=== PATIENT | male | born 1975 | race African-American/Black ===

== ENCOUNTER 2017-11-10 17:32 | Emergency (ER) | payer SELFPAY ==
[2017-11-10] MEDS ORDERED: Morphine 4 MG/ML VIAL ONE (19:05)
== END 2017-11-10 19:58 | disposition home or self-care (01) ==
LOC: ERS 17:32
DX: S13.4XXA Sprain of ligaments of cervical spine, initial encounter (principal); S39.012A Strain of muscle, fascia and tendon of lower back, initial encounter; F17.210 Nicotine dependence, cigarettes, uncomplicated; Z79.891 Long term (current) use of opiate analgesic; V89.2XXA Person injured in unspecified motor-vehicle accident, traffic, initial encounter
CPT/HCPCS: 96374; J2270

== ENCOUNTER 2018-07-24 16:35 | Emergency (ER) | payer OTHER, SELFPAY ==
[2018-07-24 17:08] LABS: Bilirubin Small (Negative); Blood, Urine Negative (Negative); Clarity CLEAR (Clear); Glucose, Urine (Dipstick) Negative (Negative); Leukocyte Negative (Negative); Nitrite Negative (Negative); Protein, Urine (Dipstick) Trace mg/dL (Neg-Trace); Specific Gravity, Urine 1.025 (1.002-1.036)
[2018-07-24] MEDS ORDERED: metroNIDAZOLE 250 MG TAB ONE ×2 (17:21→17:41)
[2018-07-24] MEDS ORDERED: cefTRIAXone\\ROCEPHIN 250 MG VIAL ONE (17:21)
[2018-07-24] MEDS ORDERED: Azithromycin 250 MG TAB ONE (17:21)
[2018-07-24] MEDS ORDERED: Lidocaine 1% PF 5 ML VIAL ONE (17:21)
[2018-07-25 23:48] LABS: Chlamydia by PCR Not Detected (NotDetected); GC by PCR Not Detected (NotDetected)
== END 2018-07-24 17:51 | disposition home or self-care (01) ==
LOC: ERS 16:35
DX: Z20.2 Contact with and (suspected) exposure to infections with a predominantly sexual mode of transmission (principal); F17.210 Nicotine dependence, cigarettes, uncomplicated
CPT/HCPCS: 81003; 87491; 87591; 96372; J0696; J2001

== ENCOUNTER 2020-04-23 15:21 | Emergency (ER) | payer SELFPAY ==
[2020-04-23 15:58] LABS: Bilirubin Negative (Negative); Blood, Urine Negative (Negative); Clarity Clear (Clear); Glucose, Urine (Dipstick) Normal (Negative); Ketone, Urine Negative (Negative); Leukocyte Negative Leu/uL (Negative); Nitrite Negative (Negative); Protein, Urine (Dipstick) Negative (Neg-Trace); Specific Gravity, Urine 1.024 (1.002-1.036)
[2020-04-23] MEDS ORDERED: Ondansetron PF 4 MG/2 ML Vial ONE (16:07)
[2020-04-23] MEDS ORDERED: Ketorolac Tromethamine 30 MG/ML VIAL ONE (16:07)
[2020-04-23] MEDS ORDERED: Morphine 4 MG/ML VIAL ONE (16:07)
[2020-04-23 16:20] LABS: #Eosinphils 0.4 thou/uL (0.0-0.7); #Lymphocytes 1.2 thou/uL (1.20-3.40); #Monocytes 0.7 thou/uL (0.11-0.59); #Neutrophils 4.3 thou/uL (1.40-6.50); %Basophils 0.5 % (0.0-1.0); %Eosinophils 6.1 % (0.0-10.0); %Lymphocytes 17.6 % (21.0-51.0); %Monocytes 10.9 % (0.0-10.0); Hemoglobin 15.3 g/dL (14.0-18.0); Mean Corpuscular HGB CONC 34.5 g/dL (32.0-36.0); Mean Corpuscular Hemoglobin 31.7 pg (27.0-31.0); Mean Corpuscular Volume 91.8 fL (78.0-98.0); Platelet Count 188 thou/uL (130-400); RBC Distribution Width 11.9 % (11.5-14.5); Red Blood Cell (RBC) Count 4.82 mill/uL (4.70-6.10); White Blood Cell (WBC) Count 6.6 thou/uL (4.8-10.8)
[2020-04-23 16:27] LABS: ALT (SGPT) 21 U/L (8-55); AST (SGOT) 21 U/L (5-34); Albumin 3.9 g/dL (3.5-5.0); Alkaline Phosphatase 43 U/L (40-110); Anion Gap 10 mmol/L (10-20); BUN (Urea Nitrogen) 11 mg/dL (8.9-20.6); Bilirubin, Total 0.6 mg/dL (0.2-1.2); Calc. Creatinine Clearance 0 mL/min (70-130); Calcium 8.9 mg/dL (7.8-10.44); Carbon Dioxide 24 mmol/L (22-29); Chloride 108 mmol/L (98-107); Estimated GFR-MDRD 74; Globulin 3.2 g/dL (2.4-3.5); Glucose 126 mg/dL (70-105); Lipase 30 U/L (8-78); Potassium 4.2 mmol/L (3.5-5.1); Protein, Total 7.1 g/dL (6.0-8.3); Sodium 138 mmol/L (136-145)
--- NOTE | 2020-04-23 16:58 | CT ---
CT abdomen and pelvis with IV contrast HISTORY: Abdomen pain. FINDINGS: The lung bases are clear. A 0.6 cm cyst is evident at the far inferior margin of the right liver lobe. There is a 0.8 cm cyst at the inferior pole right kidney. No solid mass. No evidence of bowel obstruction or inflammation. Scattered diverticula arise from the colon without inflammation. Appendix is unremarkable. Small phlebolith at the left internal inguinal ring. Nonspecific non-masslike soft tissue density at each inguinal ring may be related to previous surgery. No herniation of fat or bowel. Posterior disc protrusions at the lumbar spine L2-3, L3-4, and L4-5 level similar to prior MRI lumbar spine. IMPRESSION : Diverticulosis. No evidence of diverticulitis. No acute abnormalities are demonstrated. No evidence of inguinal hernia.
== END 2020-04-23 18:31 | disposition home or self-care (01) ==
LOC: ERS 15:21
DX: R10.31 Right lower quadrant pain (principal); R10.32 Left lower quadrant pain; F17.210 Nicotine dependence, cigarettes, uncomplicated
CPT/HCPCS: 74177; 80053; 81003; 83690; 85025; 96374; 96375; J1885; J2270; J2405

== ENCOUNTER 2020-10-29 20:40 | Inpatient (IN) | payer SELFPAY ==
[2020-10-29] MEDS ORDERED: Lidocaine 1% w/Epinephrine 1:100K 20 ML VIAL ONE (21:00)
[2020-10-29] MEDS ORDERED: Piperacillin/Tazobactam 3.375 GM VIAL ONE (21:19)
[2020-10-29] MEDS ORDERED: Morphine 4 MG/ML VIAL ONE (21:33)
[2020-10-29] MEDS ORDERED: Ondansetron PF 4 MG/2 ML Vial ONE (21:34)
[2020-10-29 21:55] LABS: #Basophils 0.1 thou/uL (0.0-0.2); #Eosinphils 0.3 thou/uL (0.0-0.7); #Lymphocytes 1.3 thou/uL (1.20-3.40); %Basophils 0.5 % (0.0-1.0); %Eosinophils 3.1 % (0.0-10.0); %Lymphocytes 13.6 % (21.0-51.0); %Monocytes 10.1 % (0.0-10.0); %Neutrophils 72.6 % (42.0-75.0); Hemoglobin 15.1 g/dL (14.0-18.0); Mean Corpuscular HGB CONC 33.6 g/dL (32.0-36.0); Mean Corpuscular Hemoglobin 29.5 pg (27.0-31.0); Mean Corpuscular Volume 87.9 fL (78.0-98.0); Mean Platelet Volume 9.6 fL (7.4-10.4); Platelet Count 242 thou/uL (130-400); RBC Distribution Width 11.4 % (11.5-14.5); White Blood Cell (WBC) Count 9.6 thou/uL (4.8-10.8)
[2020-10-29] MEDS ORDERED: Vancomycin 1 GM/200 ML BAG ONE (22:09)
[2020-10-29 22:16] LABS: ALT (SGPT) 14 U/L (8-55); AST (SGOT) 21 U/L (5-34); Albumin 3.9 g/dL (3.5-5.0); Alkaline Phosphatase 50 U/L (40-110); Anion Gap 10 mmol/L (10-20); BUN (Urea Nitrogen) 11 mg/dL (8.9-20.6); Bilirubin, Total 0.6 mg/dL (0.2-1.2); Calc. Creatinine Clearance 0 mL/min (70-130); Calcium 9.4 mg/dL (7.8-10.44); Carbon Dioxide 31 mmol/L (22-29); Chloride 100 mmol/L (98-107); Globulin 3.6 g/dL (2.4-3.5); Glucose 87 mg/dL (70-105); Potassium 3.5 mmol/L (3.5-5.1); Protein, Total 7.5 g/dL (6.0-8.3); Sodium 137 mmol/L (136-145)
[2020-10-29] MEDS ORDERED: Acetaminophen 325 MG TAB PO PRN (23:08)
[2020-10-29] MEDS ORDERED: Ondansetron PF 4 MG/2 ML Vial IVP PRN (23:08)
[2020-10-29] MEDS ORDERED: Calcium Carbonate 500 MG ChewTAB PO PRN (23:08)
[2020-10-29] MEDS ORDERED: Loperamide HCl 2 MG CAP PO PRN (23:08)
[2020-10-29] MEDS ORDERED: Guaifenesin DM 100-10/5 ML UDCUP PO PRN (23:08)
[2020-10-29] MEDS ORDERED: Senokot S 8.6-50 MG TAB PO PRN (23:08)
[2020-10-29] MEDS ORDERED: cefTRIAXone\\ROCEPHIN 1 GM in Sodium Chloride 0.9% 100 ML IVPB SCH (23:59)
[2020-10-30] MEDS: Zolpidem Tartrate 5 MG TAB PO PRN ×2 (01:04→20:58)
[2020-10-30 01:16] VITALS: BMI 28.0
[2020-10-30 05:43] LABS: SARS-CoV-2 PCR by NAA Not Detected (NotDetected)
[2020-10-30] MEDS: HYDROcodone/Acetaminophen 5/325 mg Tablet PO PRN ×2 (06:25→13:44)
[2020-10-30] MEDS: Enoxaparin Sodium 40 MG/0.4 ML SYRINGE SC SCH (08:29)
[2020-10-30] MEDS: Famotidine 20 MG TAB PO SCH ×2 (08:29→20:57)
[2020-10-30] MEDS ORDERED: Vancomycin 1 GM in Premix Bag 1 BAG IVPB SCH (10:00)
[2020-10-30] MEDS: Ondansetron ODT 4 MG TAB PO PRN (18:28)
[2020-10-30] MEDS: Vancomycin 1.5 GRAM/300 ML BAG 1.5 GM in Premix Bag 1 BAG IVPB SCH (21:20)
[2020-10-30] MEDS: cefTRIAXone\\ROCEPHIN 2 GM in Sodium Chloride 0.9% 100 ML IVPB SCH (23:52)
[2020-10-31] MEDS: Famotidine 20 MG TAB PO SCH ×2 (08:31→21:34)
[2020-10-31] MEDS: Enoxaparin Sodium 40 MG/0.4 ML SYRINGE SC SCH (08:31)
[2020-10-31] MEDS: Ketorolac Tromethamine 30 MG/ML VIAL IVP PRN ×2 (08:44→21:36)
[2020-10-31] MEDS: Vancomycin 1.5 GRAM/300 ML BAG 1.5 GM in Premix Bag 1 BAG IVPB SCH ×2 (09:51→21:34)
[2020-10-31] MEDS ORDERED: Morphine 4 MG/ML VIAL SLOW IVP PRN (11:40)
[2020-10-31] MEDS ORDERED: Hydrochlorothiazide 25 MG TAB PO SCH (16:15)
[2020-10-31] MEDS: Zolpidem Tartrate 5 MG TAB PO PRN (21:36)
[2020-11-01] MEDS: cefTRIAXone\\ROCEPHIN 2 GM in Sodium Chloride 0.9% 100 ML IVPB SCH (00:10)
[2020-11-01 07:43] LABS: #Eosinphils 0.3 thou/uL (0.0-0.7); #Lymphocytes 2.2 thou/uL (1.20-3.40); #Monocytes 0.7 thou/uL (0.11-0.59); %Basophils 0.7 % (0.0-1.0); %Eosinophils 5.1 % (0.0-10.0); %Lymphocytes 35.2 % (21.0-51.0); %Monocytes 10.5 % (0.0-10.0); %Neutrophils 48.6 % (42.0-75.0); Hemoglobin 14.7 g/dL (14.0-18.0); Mean Corpuscular HGB CONC 32.1 g/dL (32.0-36.0); Mean Corpuscular Hemoglobin 28.2 pg (27.0-31.0); Mean Platelet Volume 9.3 fL (7.4-10.4); Platelet Count 291 thou/uL (130-400); RBC Distribution Width 11.3 % (11.5-14.5); White Blood Cell (WBC) Count 6.2 thou/uL (4.8-10.8)
[2020-11-01] MEDS: Enoxaparin Sodium 40 MG/0.4 ML SYRINGE SC SCH (07:53)
[2020-11-01] MEDS: Lactated Ringer's 1,000 ML IV SCH ×2 (07:53→18:04)
[2020-11-01] MEDS: Hydrochlorothiazide 25 MG TAB PO SCH (07:53)
[2020-11-01] MEDS: Famotidine 20 MG TAB PO SCH ×2 (07:54→19:50)
[2020-11-01] MEDS ORDERED: Fentanyl 100 MCG/2 ML VIAL ONE ×3 (08:47→11:36)
[2020-11-01] MEDS ORDERED: Lidocaine 1% PF 5 ML VIAL ONE (08:52)
[2020-11-01] MEDS ORDERED: Ondansetron PF 4 MG/2 ML Vial ONE (08:52)
[2020-11-01] MEDS ORDERED: PROPOFOL 200 MG/20 ML VIAL ONE (08:52)
[2020-11-01] MEDS ORDERED: Ketorolac Tromethamine 30 MG/ML VIAL ONE (08:52)
[2020-11-01] MEDS ORDERED: Dexamethasone 20 MG/5 ML VIAL ONE (08:52)
[2020-11-01] MEDS ORDERED: Meperidine HCl/PF 25 MG/ML VIAL SLOW IVP PRN (09:43)
[2020-11-01] MEDS ORDERED: PACU-Morphine 4MG/ML VIAL SLOW IVP PRN (09:43)
[2020-11-01] MEDS ORDERED: HYDROmorphone 2 MG/ML VIAL SLOW IVP PRN (09:43)
[2020-11-01] MEDS ORDERED: Promethazine HCl 25 MG/ML VIAL IM PRN (09:43)
[2020-11-01] MEDS ORDERED: Ondansetron HCl/PF 4 MG/2 ML Vial IVP PRN (09:43)
[2020-11-01] MEDS ORDERED: Promethazine HCl 25 MG/ML VIAL SLOW IVP PRN (09:43)
[2020-11-01] MEDS ORDERED: Meperidine HCl/PF 25 MG/ML VIAL ONE (10:25)
[2020-11-01] MEDS ORDERED: HYDROmorphone 0.5 MG/0.5 ML SYRINGE ONE ×2 (10:30→10:38)
[2020-11-01] MEDS ORDERED: Morphine 2 MG/ML VIAL SLOW IVP PRN (10:50)
[2020-11-01] MEDS ORDERED: Morphine 4 MG/ML VIAL SLOW IVP PRN ×2 (10:50→11:07)
[2020-11-01] MEDS ORDERED: Acetaminophen 325 MG TAB PO PRN ×2 (10:50)
[2020-11-01] MEDS ORDERED: HYDROcodone/Acetaminophen 7.5/325 mg Tablet PO PRN ×2 (10:50)
[2020-11-01] MEDS ORDERED: traMADol HCl 50 MG TAB PO PRN ×2 (10:50)
[2020-11-01] MEDS ORDERED: hydrALAZINE 20 MG/ML VIAL ONE (11:34)
[2020-11-01 13:26] LABS: Vancomycin, Trough 39.8 ug/mL
[2020-11-01] MEDS: Vancomycin 1.5 GRAM/300 ML BAG 1.5 GM in Premix Bag 1 BAG IVPB SCH ×2 (13:38→22:55)
[2020-11-01] MEDS: Ondansetron ODT 4 MG TAB PO PRN (13:40)
[2020-11-01] MEDS ORDERED: hydrALAZINE 20 MG/ML VIAL SLOW IVP SCH (16:45)
[2020-11-01] MEDS: Zolpidem Tartrate 5 MG TAB PO PRN (20:20)
[2020-11-01] MEDS ORDERED: hydrALAZINE 20 MG/ML VIAL SLOW IVP PRN (21:00)
[2020-11-01 21:20] LABS: Vancomycin, Trough 13.4 ug/mL
[2020-11-02] MEDS: cefTRIAXone\\ROCEPHIN 2 GM in Sodium Chloride 0.9% 100 ML IVPB SCH (00:50)
[2020-11-02] MEDS: Ondansetron ODT 4 MG TAB PO PRN (00:59)
[2020-11-02] MEDS: Ketorolac Tromethamine 30 MG/ML VIAL IVP PRN (00:59)
[2020-11-02] MEDS: Lactated Ringer's 1,000 ML IV SCH ×2 (04:26→08:25)
[2020-11-02] MEDS: Enoxaparin Sodium 40 MG/0.4 ML SYRINGE SC SCH (08:24)
[2020-11-02] MEDS: Hydrochlorothiazide 25 MG TAB PO SCH (08:24)
[2020-11-02] MEDS: Famotidine 20 MG TAB PO SCH (08:24)
[2020-11-02 09:16] LABS: Vancomycin, Random 14.4 ug/mL (See Comment)
[2020-11-02] MEDS: Vancomycin 1.5 GRAM/300 ML BAG 1.5 GM in Premix Bag 1 BAG IVPB SCH (09:28)
[2020-11-02 14:32] VITALS: BP 155/101; TEMP 98.3
[2020-11-02] MEDS ORDERED: Saccharomyces boulardii 250 MG CAP PO SCH (21:00)
== END 2020-11-02 14:20 | disposition home or self-care (01) | DRG 256 ==
LOC: ERS 20:40 → T4-B 22:43
PROVIDERS: ADMIT Internal Medicine; ATTEND Internal Medicine
PROC: 0Y6Y0Z0 Detachment at Left 5th Toe, Complete, Open Approach (ICD-10-PCS; principal; 2020-11-01)
DX: I96 Gangrene, not elsewhere classified (principal); L02.612 Cutaneous abscess of left foot; L03.032 Cellulitis of left toe; F19.10 Other psychoactive substance abuse, uncomplicated; Z20.822 Contact with and (suspected) exposure to COVID-19; F17.210 Nicotine dependence, cigarettes, uncomplicated; F10.20 Alcohol dependence, uncomplicated; N18.2 Chronic kidney disease, stage 2 (mild); I12.9 Hypertensive chronic kidney disease with stage 1 through stage 4 chronic kidney disease, or unspecified chronic kidney disease; T88.59XA Other complications of anesthesia, initial encounter; R11.0 Nausea
CPT/HCPCS: 10060; 36415; 36416; 80053; 80202; 83605; 85025; 87040; 87070; 87077; 87205; 87635; 88305; 93005; 93010; 96365; 96367; 96375; J0360; J0696; J1100; J1170; J1650; J1885; J2175; J2270; J2405; J2543; J2704; J3010; J3370; J3490; Q0162; U0003; U0005

== ENCOUNTER 2022-05-30 08:11 | Emergency (ER) | payer SELFPAY ==
[2022-05-30] MEDS ORDERED: Fluconazole 100 MG TAB PO SCH (11:00)
== END 2022-05-30 11:28 | disposition home or self-care (01) ==
LOC: ERS 08:11
DX: B36.9 Superficial mycosis, unspecified (principal); H62.41 Otitis externa in other diseases classified elsewhere, right ear; B35.3 Tinea pedis; F17.210 Nicotine dependence, cigarettes, uncomplicated

== ENCOUNTER 2022-10-08 07:05 | Emergency (ER) | payer BC, SELFPAY ==
[2022-10-08] MEDS ORDERED: Fluconazole 100 MG TAB PO SCH (09:00)
== END 2022-10-08 10:21 | disposition home or self-care (01) ==
LOC: ERS 07:05
DX: B35.3 Tinea pedis (principal); I10 Essential (primary) hypertension; F17.210 Nicotine dependence, cigarettes, uncomplicated
CPT/HCPCS: 99283